=== PATIENT | female | born 1970 | race American Indian/Alaskan Native ===

== ENCOUNTER 2017-07-30 07:16 | Outpatient (CLI) | payer OTHER ==
[2017-07-30] MEDS ORDERED: PROVENTIL IH ONE (07:44)
== END 2017-07-30 07:17 | disposition home or self-care (01) ==
LOC: PF 07:16
PROVIDERS: ATTEND Internal Medicine
DX: J84.9 Interstitial pulmonary disease, unspecified (principal); J31.0 Chronic rhinitis; J98.4 Other disorders of lung; R06.02 Shortness of breath; R13.10 Dysphagia, unspecified; K21.9 Gastro-esophageal reflux disease without esophagitis; D89.89 Other specified disorders involving the immune mechanism, not elsewhere classified
CPT/HCPCS: 94060; 94640; 94729